=== PATIENT | female | born 1980 | race Caucasian/White ===

== ENCOUNTER 2017-05-25 08:42 | Emergency (ER) | payer BC ==
[2017-05-25 09:03] VITALS: BP 139/59
[2017-05-25] MEDS ORDERED: Ketorolac 60 MG/2 ML SDV IM ONE (09:15)
--- NOTE | 2017-05-25 09:25 | EDM.PDOC ---
ED HPI GENERAL MEDICAL PROBLEM - General Chief Complaint: Back Pain or Injury Stated Complaint: FELL ON ICE YESTERDAY Time Seen by Provider: 05/25/17 09:05 Source of Information: Reports: Patient History Limitations: Reports: No Limitations - History of Present Illness INITIAL COMMENTS - FREE TEXT/NARRATIVE: 36-year-old female was getting out of her car yesterday morning and slipped landing hard on her back on the left side. She is able to ambulate but has sharp pain in her lower back, left posterior shoulder and left lateral arm. She is able to move everything and she sat in a hot bath yesterday and has been taking ibuprofen however this morning it's worse. She is having trouble walking. She did not land directly on her backside but more flat on her back. No urinary changes, paresthesias or asymmetric weakness. She said she had trouble sleeping last night as well. 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 Lower Back Pain Score (Numeric/FACES): 8 - Related Data Allergies Allergy/AdvReac Type Severity Reaction Status Date / Time morphine AdvReac Headache Verified 05/25/17 08:52 prednisone AdvReac Tachycardia Verified 05/25/17 08:52 Home Meds: Home Meds Escitalopram [Lexapro] 20 mg PO DAILY 04/01/15 [History] Ibuprofen [Ibuprofen Ib] 400 mg PO Q4H PRN 04/01/15 [History] Zolpidem [Ambien] 10 mg PO BEDTIME PRN 04/01/15 [History] Past Medical History HEENT History: Reports: Impaired Vision 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: , 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 Musculoskeletal History: Reports: Osteoarthritis Neurological History: Reports: Migraines Psychiatric History: Reports: Anxiety, Depression Endocrine/Metabolic History: Reports: Obesity/BMI 30+ Other Dermatologic History: shingles - Infectious Disease History Infectious Disease History: Reports: Chicken Pox, Shingles - Past Surgical History GI Surgical History: Reports: Appendectomy, Cholecystectomy Female Surgical History: Reports: Hysterectomy Musculoskeletal Surgical History: Reports: Arthroscopic Knee Social & Family History - Tobacco Use Smoking Status *Q: Current Every Day Smoker Years of Tobacco use: 22 Packs/Tins Daily: 0.5 Used Tobacco, but Quit: No Second Hand Smoke Exposure: Yes - Caffeine Use Caffeine Use: Reports: Coffee, Energy Drinks, Soda, Tea - Alcohol Use Days Per Week of Alcohol Use: 0 - Recreational Drug Use Recreational Drug Use: No ED ROS GENERAL - Review of Systems Review Of Systems: See Below Constitutional: Denies: Fever, Chills Respiratory: Denies: Shortness of Breath Cardiovascular: Denies: Chest Pain GI/Abdominal: Denies: Abdominal Pain, Nausea, Vomiting : Reports: No Symptoms Skin: Reports: Bruising (Little bit of bruising developing in the left posterior upper back) ED EXAM,LOWER BACK PAIN/INJURY - Physical Exam Exam: See Below Exam Limited By: No Limitations General Appearance: Alert, No Apparent Distress (Patient looks uncomfortable but not acutely distressed) Neck: Other (Some mild soreness with rotation but generally supple, no bony tenderness) Respiratory/Chest: No Respiratory Distress Back Exam: Other (Very tender to palpation over the lumbar spine especially on the left. Increased pain with rotation against resistance and sharp increased pain with leg extension bilaterally. The pain is localized to the lower back however and does not extend down the leg) Course - Vital Signs Last Recorded V/S: Last Vital Signs Temp 97.4 F 05/25/17 09:01 Pulse 80 05/25/17 09:01 Resp 20 05/25/17 09:01 BP 139/59 L 05/25/17 09:01 Pulse Ox 99 05/25/17 09:01 - Orders/Labs/Meds Meds: Medications Discontinued Medications Generic Name Dose Route Start Last Admin Trade Name Riana PRN Reason Stop Dose Admin Ketorolac Tromethamine 60 mg 05/25/17 09:15 05/25/17 09:31 Toradol IM 05/25/17 09:16 60 mg ONETIME ONE Administration - Re-Assessments/Exams Free Text/Narrative Re-Assessment/Exam: 05/25/17 09:21 Explained to the patient that this is fairly typical post traumatic inflammatory reaction which was likely worsened by the heat that she applied after the injury. She was given an injection of Toradol 60 mg IM, will be discharged with Flexeril and a few Vicodin to use for extra pain control over the next several days. Also a note for work for 2 days but I encouraged her to try to stay active. She'll recheck in 3-4 days if not improving satisfactorily. Departure - Departure Time of Disposition: 09:47 Disposition: Home, Self-Care 01 Condition: Good Clinical Impression: Acute low back pain due to trauma, Contusion, shoulder /upper arm - Discharge Information Instructions: Back Pain, Adult, [id number] Referrals: Cristina Acosta NP [Primary Care Provider] - Forms: ED Department Discharge Care Plan Goals: Continue with ibuprofen 2-3 times daily, and muscle relaxers 3 times a day and stronger pain medications when trying to rest as directed. All 3 medications can be taken safely together if not driving. Ice may help the next 24-48 hours, then heat is okay. Try to increase activity as soon as possible and recheck in 3 -4 days if not improving satisfactorily. Return sooner if worsening such as incontinence, unexplained asymmetric weakness or numbness.
== END 2017-05-25 09:47 | disposition home or self-care (01) ==
LOC: JP.ED 08:42
DX: S40.012A Contusion of left shoulder, initial encounter (principal); G89.11 Acute pain due to trauma; F32.9 Major depressive disorder, single episode, unspecified; F17.210 Nicotine dependence, cigarettes, uncomplicated; Z79.899 Other long term (current) drug therapy; Z88.5 Allergy status to narcotic agent; Z88.8 Allergy status to other drugs, medicaments and biological substances; W00.0XXA Fall on same level due to ice and snow, initial encounter; M54.5 Low back pain
CPT/HCPCS: 96372; 99283; J1885

== ENCOUNTER 2019-01-26 11:45 | Emergency (ER) | payer BC ==
[2019-01-26 12:00] VITALS: BP 132/81; PULSE 85
[2019-01-26] MEDS ORDERED: Ketorolac 60 MG/2 ML SDV IM ONE (12:02)
[2019-01-26] MEDS ORDERED: Aspirin 81 MG Tab.Chew PO ONE (12:02)
--- NOTE | 2019-01-26 12:09 | EDM.PDOC ---
ED HPI GENERAL MEDICAL PROBLEM - General Chief Complaint: Chest Pain Stated Complaint: CHEST PAIN Time Seen by Provider: 01/26/19 12:00 Source of Information: Reports: Patient, RN Notes Reviewed History Limitations: Reports: No Limitations - History of Present Illness INITIAL COMMENTS - FREE TEXT/NARRATIVE: 38-year-old female presents emergency department today complaint chest pain, she states it started about 30 minutes prior she is cold and clammy short of breath she is nauseated does have pain shooting up into her neck and shoulder feels like she is going to . 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: , 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 Musculoskeletal History: Reports: Osteoarthritis Neurological History: Reports: Migraines Psychiatric History: Reports: Anxiety, Depression Endocrine/Metabolic History: Reports: Obesity/BMI 30+ Other Dermatologic History: shingles - Infectious Disease History Infectious Disease History: Reports: Chicken Pox, Shingles - Past Surgical History GI Surgical History: Reports: Appendectomy, Cholecystectomy Female Surgical History: Reports: Hysterectomy Musculoskeletal Surgical History: Reports: Arthroscopic Knee Social & Family History - Tobacco Use Smoking Status *Q: Heavy Tobacco Smoker Years of Tobacco use: 26 Packs/Tins Daily: 0.5 - Caffeine Use Caffeine Use: Reports: Coffee - Recreational Drug Use Recreational Drug Use: No ED ROS GENERAL - Review of Systems Review Of Systems: See Below Constitutional: Reports: Diaphoresis HEENT: Reports: No Symptoms Respiratory: Reports: Shortness of Breath Cardiovascular: Reports: Chest Pain, Dyspnea on Exertion GI/Abdominal: Reports: No Symptoms ED EXAM, GENERAL - Physical Exam Exam: See Below General Appearance: Alert, Mild Distress Respiratory/Chest: No Respiratory Distress, Lungs Clear, Normal Breath Sounds, No Accessory Muscle Use, Chest Non-Tender Cardiovascular: Regular Rate, Rhythm, No Murmur GI/Abdominal: Soft, Non-Tender Course - Vital Signs Last Recorded V/S: Last Vital Signs Temp 97.0 F 01/26/19 12:07 Pulse 85 01/26/19 12:07 Resp 15 01/26/19 12:07 BP 132/81 01/26/19 12:07 Pulse Ox 100 01/26/19 12:07 - Orders/Labs/Meds Orders: Active Orders 24 hr Category Date Time Status Cardiac Monitoring [RC] .As Directed Care 01/26/19 12:02 Active EKG Documentation Completion [RC] ASDIRECTED Care 01/26/19 12:02 Active EKG 12 Lead [EK] Stat Ther 01/26/19 12:02 Ordered Labs: Laboratory Tests 01/26/19 01/26/19 01/26/19 Range/Units 12:02 12:20 14:59 WBC 8.9 (4.5-11.0) K/uL RBC 5.01 (3.30-5.50) M/uL Hgb 15.4 H D (12.0-15.0) g/dL Hct 45.9 (36.0-48.0) % MCV 92 (80-98) fL MCH 31 (27-31) pg MCHC 34 (32-36) % Plt Count 280 (150-400) K/uL Neut % (Auto) 54 (36-66) % Lymph % (Auto) 33 (24-44) % Walsh % (Auto) 9 H (2-6) % Eos % (Auto) 4 (2-4) % Baso % (Auto) 1 (0-1) % Sodium 139 L (140-148) mmol/L Potassium 4.2 (3.6-5.2) mmol/L Chloride 103 (100-108) mmol/L Carbon Dioxide 26 (21-32) mmol/L Anion Gap 14.2 H (5.0-14.0) mmol/L BUN 10 (7-18) mg/dL Creatinine 0.7 (0.6-1.0) mg/dL Est Cr Clr Drug Dosing 85.34 mL/min Estimated GFR (MDRD) > 60 (>60) Glucose 95 (74-106) mg/dL Calcium 8.8 (8.5-10.1) mg/dL Total Bilirubin 0.3 (0.2-1.0) mg/dL AST 30 D (15-37) U/L ALT 38 D (12-78) U/L Alkaline Phosphatase 81 (46-116) U/L CK-MB (CK-2) 0.8 (0-3.6) mg/mL Troponin I < 0.017 < 0.017 (0.000-0.056) ng/mL Total Protein 6.7 (6.4-8.2) g/dL Albumin 3.2 L (3.4-5.0) g/dL Globulin 3.5 (2.3-3.5) g/dL Albumin/Globulin Ratio 0.9 L (1.2-2.2) Meds: Medications Discontinued Medications Generic Name Dose Route Start Last Admin Trade Name Freq PRN Reason Stop Dose Admin Aspirin 324 mg 01/26/19 12:02 01/26/19 12:11 Aspirin PO 01/26/19 12:03 324 mg ONETIME ONE Administration Ceftriaxone Sodium 1 gm/ 0 gm 01/26/19 15:02 Lidocaine HCl 2.1 ml IM 01/26/19 15:03 ONETIME ONE Fentanyl 50 mcg 01/26/19 13:36 01/26/19 13:42 Sublimaze IVPUSH 01/26/19 13:37 50 mcg ONETIME ONE Administration Ketorolac Tromethamine 60 mg 01/26/19 12:02 01/26/19 12:11 Toradol IM 01/26/19 12:03 60 mg ONETIME ONE Administration Departure - Departure Time of Disposition: 15:55 Disposition: Home, Self-Care 01 Condition: Fair Clinical Impression: Panic attack Referrals: Kelsea Ugarte RN [Primary Care Provider] - Forms: ED Department Discharge Additional Instructions: Only when these symptoms arise follow-up with primary care in 3-5 days if improvement call or return to the emergency department worsening of symptoms - My Orders Last 24 Hours: My Active Orders 01/26/19 12:02 Cardiac Monitoring [RC] .As Directed EKG Documentation Completion [RC] ASDIRECTED EKG 12 Lead [EK] Stat - Assessment/Plan Last 24 Hours: My Active Orders 01/26/19 12:02 Cardiac Monitoring [RC] .As Directed EKG Documentation Completion [RC] ASDIRECTED EKG 12 Lead [EK] Stat Plan: Assessment Acuity = acute Site and laterality = panic attack Etiology = generalized anxiety disorder Manifestations = chest pain now resolved Location of injury = Home Lab values = CBC, CMP, EKG, chest x-ray all within normal limits Plan We'll try Ativan 1 mg by mouth 3 times a day when necessary only when she is having attacks recommend follow-up primary care in 3-5 days This note was dictated using [email or web address] voice recognition software please call with any questions on syntax or grammar.
--- NOTE | 2019-01-26 12:59 | CRLCR ---
INDICATION: CHEST PAIN SENT PRIORS TECHNIQUE: Chest 2 views. COMPARISON: 05/07/09 FINDINGS: Cardiovascular and mediastinum: Heart size and vasculature are normal in caliber and appearance. Mediastinum is within normal limits. Lungs and pleural spaces: Lungs are clear. No sign of infiltrate or mass. No sign of pleural effusion. No pneumothorax. Bones and soft tissues: No significant findings. IMPRESSION: Unremarkable chest. Dictated by: Santiago Rosa MD @ 01/26/2019 12:57:09 (Electronically Signed)
[2019-01-26] MEDS ORDERED: fentaNYL 100 MCG/2 ML SDV IVPUSH ONE (13:36)
[2019-01-26] MEDS ORDERED: cefTRIAXone 1 GM, Lidocaine 1% 2.1 ML IM ONE ×2 (15:02)
== END 2019-01-26 16:03 | disposition home or self-care (01) ==
LOC: JP.ED 11:45
DX: F41.0 Panic disorder [episodic paroxysmal anxiety] (principal); F32.9 Major depressive disorder, single episode, unspecified; E66.9 Obesity, unspecified; F17.210 Nicotine dependence, cigarettes, uncomplicated; Z68.41 Body mass index [BMI] 40.0-44.9, adult; Z88.6 Allergy status to analgesic agent; Z88.8 Allergy status to other drugs, medicaments and biological substances; Z79.899 Other long term (current) drug therapy
CPT/HCPCS: 36415; 71046; 80053; 82553; 84484; 85025; 93005; 96372; 96374; 99284; A9270; J1885; J3010

== ENCOUNTER 2021-02-27 10:54 | Emergency (ER) | payer SELFPAY ==
[2021-02-27 11:04] VITALS: BP 106/84; PULSE 99
[2021-02-27] MEDS: Ondansetron 4 MG Tab.DIS PO ONE (11:24)
[2021-02-27] MEDS: SUMAtriptan 6 MG/0.5 ML SDV SUBCUT ONE (12:06)
--- NOTE | 2021-02-27 13:09 | CR ---
CHEST: 2 view CLINICAL HISTORY:Dyspnea COMPARISON:2019 FINDINGS: The heart size, pulmonary vascularity and hilar structures are normal. No infiltrate effusion or pneumothorax is seen. IMPRESSION: No acute cardiopulmonary process.
--- NOTE | 2021-02-27 13:10 | EDM.PDOC ---
ED HPI GENERAL MEDICAL PROBLEM - General Chief Complaint: General Stated Complaint: HEADACHE FEELING DIFFERENT Time Seen by Provider: 02/27/21 11:15 Source of Information: Reports: Patient History Limitations: Reports: No Limitations - History of Present Illness INITIAL COMMENTS - FREE TEXT/NARRATIVE: 40-year-old female with chronic migraines, is struggling with the migraine he adache for the past 24 hours that is worse than usual. She took 3 doses of her antimigraine medicine yesterday, today now she has some left-sided anterior chest pressure that is worse with breathing, persistent nausea and just generalized malaise. She is afraid something more serious is wrong. Headache is now fairly under control but the nausea is very persistent. She continues to have intermittent aura. Onset: Other Associated Symptoms: Reports: Chest Pain, Malaise, Nausea/Vomiting. 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 Musculoskeletal History: Reports: Osteoarthritis Neurological History: Reports: Migraines Psychiatric History: Reports: Anxiety, Depression Endocrine/Metabolic History: Reports: Obesity/BMI 30+ Other Dermatologic History: shingles - Infectious Disease History Infectious Disease History: Reports: Chicken Pox, Shingles - Past Surgical History GI Surgical History: Reports: Appendectomy, Cholecystectomy Female Surgical History: Reports: Hysterectomy Musculoskeletal Surgical History: Reports: Arthroscopic Knee Social & Family History - Tobacco Use Tobacco Use Status *Q: Current Every Day Tobacco User Years of Tobacco use: 22 Packs/Tins Daily: 0.5 - Caffeine Use Caffeine Use: Reports: Coffee, Soda - Recreational Drug Use Recreational Drug Use: No ED ROS GENERAL - Review of Systems Review Of Systems: See Below Constitutional: Reports: Malaise. Denies: Fever, Chills HEENT: Reports: Vision Change (Some aura) Respiratory: Reports: Pleuritic Chest Pain (Left anterior pain). Denies: Shortness of Breath Cardiovascular: Reports: Chest Pain GI/Abdominal: Reports: Nausea. Denies: Abdominal Pain, Vomiting : Reports: No Symptoms Musculoskeletal: Reports: Other (Left anterior chest discomfort) Skin: Reports: No Symptoms. Denies: Rash Neurological: Reports: Headache Psychiatric: Reports: No Symptoms ED EXAM, GENERAL - Physical Exam Exam: See Below Exam Limited By: No Limitations General Appearance: Alert, No Apparent Distress Eye Exam: Bilateral Eye: Normal Inspection Head: Atraumatic Neck: Non-Tender Respiratory/Chest: Lungs Clear, Other (There is a sore area to palpation on the anterior left chest wall) Cardiovascular: Regular Rate, Rhythm GI/Abdominal: Soft, Non-Tender, No Mass Extremities: Normal Inspection Neurological: Alert, Oriented, No Motor/Sensory Deficits Psychiatric: Flat Affect Skin Exam: Warm, Dry Course - Vital Signs Last Recorded V/S: Last Vital Signs Temp 97.8 F 02/27/21 11:02 Pulse 99 02/27/21 11:02 Resp 16 02/27/21 11:02 BP 106/84 02/27/21 11:02 Pulse Ox 97 02/27/21 11:02 - Orders/Labs/Meds Orders: Active Orders 24 hr Category Date Time Status EKG 12 Lead [EK] Routine Ther 02/27/21 11:18 Ordered Labs: Laboratory Tests 02/27/21 02/27/21 02/27/21 Range/Units 11:30 11:30 11:30 WBC 11.0 (4.5-11.0) K/uL RBC 5.00 (3.30-5.50) M/uL Hgb 15.3 H (12.0-15.0) g/dL Hct 45.2 (36.0-48.0) % MCV 90 (80-98) fL MCH 31 (27-31) pg MCHC 34 (32-36) % Plt Count 317 (150-400) K/uL Neut % (Auto) 61.2 (36-66) % Lymph % (Auto) 25.7 (24-44) % [place] % (Auto) 9.7 H (2-6) % Eos % (Auto) 2.9 (2-4) % Baso % (Auto) 0.5 (0-1) % D-Dimer, Quantitative 387.62 (0.0-500.0) ng/mL Sodium 139 L (140-148) mmol/L Potassium 4.2 (3.6-5.2) mmol/L Chloride 102 (100-108) mmol/L Carbon Dioxide 23 (21-32) mmol/L Anion Gap 18.2 H (5.0-14.0) mmol/L BUN 9 (7-18) mg/dL Creatinine 0.7 (0.6-1.0) mg/dL Est Cr Clr Drug Dosing TNP Estimated GFR (MDRD) > 60 (>60) Glucose 97 (74-106) mg/dL Calcium 8.8 (8.5-10.1) mg/dL Total Bilirubin 0.2 (0.2-1.0) mg/dL AST 20 (15-37) U/L ALT 30 (12-78) U/L Alkaline Phosphatase 80 (46-116) U/L Troponin I < 0.017 (0.000-0.056) ng/mL Total Protein 6.6 (6.4-8.2) g/dL Albumin 3.2 L (3.4-5.0) g/dL Globulin 3.4 (2.3-3.5) g/dL Albumin/Globulin Ratio 0.9 L (1.2-2.2) Meds: Medications Discontinued Medications Generic Name Dose Route Start Last Admin Trade Name Freq PRN Reason Stop Dose Admin Ketorolac Tromethamine 30 mg 02/27/21 12:55 02/27/21 13:14 Ketorolac 30 Mg/Ml Sdv IVPUSH 02/27/21 12:56 30 mg ONETIME ONE Administration Methylprednisolone Sodium Succinate 125 mg 02/27/21 12:55 02/27/21 13:18 Methylprednisolone Sodium Succinate 125 Mg/2 Ml Sdv IVPUSH 02/27/21 12:56 125 mg ONETIME ONE Administration Ondansetron HCl 4 mg 02/27/21 11:18 02/27/21 11:24 Ondansetron 4 Mg Tab.Dis PO 02/27/21 11:19 4 mg ONETIME ONE Administration Sumatriptan Succinate 6 mg 02/27/21 11:56 02/27/21 12:06 Sumatriptan 6 Mg/0.5 Ml Sdv SUBCUT 02/27/21 11:57 6 mg ONETIME ONE Administration - Re-Assessments/Exams Free Text/Narrative Re-Assessment/Exam: 02/27/21 13:09 Initially blood was drawn for CBC CMP TSH and troponin, 2 view chest x-ray was obtained as well. X-ray was normal, all her labs were reassuring. Unfortunately her headache worsened while she was here, so she was given 6 mg of IM Imitrex which did not give her a lot of relief. An IV was then started she was given 30 mg of IV Toradol and 125 mg of IV Solu-Medrol. 02/27/21 18:34 All labs returned very reassuring, D-dimer, troponin were normal, patient was reassured. She responded pretty well to the IV Toradol. Departure - Departure Time of Disposition: 13:37 Disposition: Home, Self-Care 01 Clinical Impression: Atypical chest pain Migraine headache with aura Qualifiers: Status migrainosus presence: without status migrainosus Intractability: not intractable Qualified Code(s): G43.109 - Migraine with aura, not intractable, without status migrainosus - Discharge Information Instructions: Nonspecific Chest Pain, Adult, [id number] Referrals: PCP,None [Primary Care Provider] - Forms: ED Department Discharge Care Plan Goals: Resume your regular medications, stay hydrated, and increase activity as tolerated. Rest today and return in the next couple of days if not improving satisfactorily. Sepsis Event Note (ED) - Evaluation Sepsis Screening Result: No Definite Risk - Focused Exam Vital Signs: Vital Signs Temp Pulse Resp BP Pulse Ox 02/27/21 11:02 97.8 F 99 16 106/84 97 - My Orders Last 24 Hours: My Active Orders 02/27/21 11:18 EKG 12 Lead [EK] Routine - Assessment/Plan Last 24 Hours: My Active Orders 02/27/21 11:18 EKG 12 Lead [EK] Routine
[2021-02-27] MEDS: Ketorolac 30 MG/ML SDV IVPUSH ONE (13:14)
[2021-02-27] MEDS: methylPREDNISolone Sodium Succinate 125 MG/2 ML SDV IVPUSH ONE (13:18)
== END 2021-02-27 13:40 | disposition home or self-care (01) ==
LOC: JP.ED 10:54
DX: G43.109 Migraine with aura, not intractable, without status migrainosus (principal); R07.89 Other chest pain; E66.9 Obesity, unspecified; Z88.5 Allergy status to narcotic agent; Z88.8 Allergy status to other drugs, medicaments and biological substances; Z72.0 Tobacco use
CPT/HCPCS: 36415; 71046; 80053; 84484; 85025; 85379; 93005; 96372; 96374; 96375; 99285; A9270; J1885; J2930; J3030

== ENCOUNTER 2022-10-10 08:43 | Emergency (ER) | payer SELFPAY ==
[2022-10-10 10:14] LABS: ESTIMATED GFR 94 mL/min (>60); TROPONIN I HIGH SENSITIVITY 5.7 pg/mL (<=60.3)
[2022-10-10 10:29] VITALS: BP 122/74; PULSE 74
== END 2022-10-10 13:30 | disposition home or self-care (01) ==
LOC: JP.ED 08:43
DX: R07.89 Other chest pain (principal); E75.5 Other lipid storage disorders; E66.01 Morbid (severe) obesity due to excess calories; Z88.5 Allergy status to narcotic agent; Z88.8 Allergy status to other drugs, medicaments and biological substances; Z72.0 Tobacco use; Z68.43 Body mass index [BMI] 50.0-59.9, adult
CPT/HCPCS: 36415; 71045; 71045-26; 80048; 84484; 85025; 85610; 85730; 93005; 99285

== ENCOUNTER 2022-12-21 14:04 | Emergency (ER) | payer SELFPAY ==
[2022-12-21 14:22] VITALS: BP 130/73; PULSE 92
[2022-12-21] MEDS ORDERED: Ketorolac 30 MG/ML SDV IM ONE (14:46)
[2022-12-21 14:54] LABS: HEMATOCRIT 42.7 % (34.3-46.0); HEMOGLOBIN 14.6 g/dL (11.2-15.5); MEAN CORPUSCULAR HGB CONC 34.2 g/dL (31.6-35.5); MEAN CORPUSCULAR VOLUME 90.7 fL (81.4-99.0); RED BLOOD CELL COUNT 4.71 M/uL (3.77-5.24); WHITE BLOOD CELL COUNT,WBC 10.8 K/uL (3.2-11.0)
[2022-12-21 15:16] LABS: A/G RATIO 0.9 (1.2-2.2); ALANINE AMINOTRANSFERASE,ALT 22 U/L (12-78); ALKALINE PHOSPHATASE 82 U/L (46-116); ANION GAP 8.5 mmol/L (5.0-14.0); ASPARTATE AMNIOTRANSFERASE,AST 17 U/L (15-37); BILIRUBIN TOTAL 0.3 mg/dL (0.2-1.0); BLOOD UREA NITROGEN,BUN 9 mg/dL (7-18); CALCIUM 8.6 mg/dL (8.5-10.1); CARBON DIOXIDE,CO2 26 mmol/L (21-32); CHLORIDE,CL 106 mmol/L (100-108); CREATININE 0.7 mg/dL (0.6-1.0); EST CRCL DRUG DOSING (CG) 81.96 mL/min; ESTIMATED GFR 110 mL/min (>60); GLUCOSE RANDOM 131 mg/dL (74-106); POTASSIUM,K 3.8 mmol/L (3.6-5.2); PROTEIN TOTAL,TP 6.4 g/dL (6.4-8.2); SODIUM,NA 140 mmol/L (140-148)
[2022-12-21 15:17] LABS: PROTHROMBIN TIME 9.9 sec (9.2-10.6)
[2022-12-21 15:43] LABS: APPEARANCE,URINE CLEAR (CLEAR); BILIRUBIN,URINE NEGATIVE (NEGATIVE); COLOR,URINE YELLOW (YELLOW); GLUCOSE,URINE NEGATIVE (NEGATIVE); KETONES,URINE NEGATIVE (NEGATIVE); LEUKOCYTE ESTERASE,URINE NEGATIVE (NEGATIVE); NITRITE,URINE NEGATIVE (NEGATIVE); OCCULT BLOOD,URINE NEGATIVE (NEGATIVE); PH,URINE 5.5 (5.0-8.0); PROTEIN,URINE NEGATIVE (NEGATIVE); UROBILINOGEN,URINE 0.2 EU/dL (0.2-1.0)
[2022-12-21 15:51] LABS: AMORPHOUS SEDIMENT,URINE NOT SEEN; BACTERIA,URINE RARE; EPITHELIAL CELLS,URINE FEW; MUCUS,URINE RARE; RBC,URINE 0-5 (0-5); WBC,URINE 0-5 (0-5)
== END 2022-12-21 16:10 | disposition home or self-care (01) ==
LOC: JP.ED 14:04
DX: R09.1 Pleurisy (principal); M19.90 Unspecified osteoarthritis, unspecified site; E66.9 Obesity, unspecified; F17.210 Nicotine dependence, cigarettes, uncomplicated; Z68.42 Body mass index [BMI] 45.0-49.9, adult; Z88.5 Allergy status to narcotic agent; Z88.8 Allergy status to other drugs, medicaments and biological substances; Z79.82 Long term (current) use of aspirin
CPT/HCPCS: 36415; 71046; 80053; 81001; 81025; 83605; 84484; 85027; 85379; 85610; 93005; 96372; 99285; J1885

== ENCOUNTER 2024-07-01 07:57 | Emergency (ER) | payer SELFPAY ==
[2024-07-01 08:14] VITALS: BP 138/79; PULSE 117
[2024-07-01 08:51] LABS: APPEARANCE,URINE CLEAR (CLEAR); BILIRUBIN,URINE NEGATIVE (NEGATIVE); COLOR,URINE YELLOW (YELLOW); GLUCOSE,URINE NEGATIVE (NEGATIVE); KETONES,URINE NEGATIVE (NEGATIVE); LEUKOCYTE ESTERASE,URINE NEGATIVE (NEGATIVE); NITRITE,URINE NEGATIVE (NEGATIVE); OCCULT BLOOD,URINE NEGATIVE (NEGATIVE); PROTEIN,URINE NEGATIVE (NEGATIVE); UROBILINOGEN,URINE 0.2 EU/dL (0.2-1.0)
[2024-07-01 08:54] LABS: BASOPHILS ABSOLUTE AUTO 0.06 K/uL (0.00-0.10); BASOPHILS PERCENT AUTO 0.6 % (0.1-1.3); EOSINOPHILS ABSOLUTE AUTO 0.44 K/uL (0.00-0.40); EOSINOPHILS PERCENT AUTO 4.1 % (0.0-5.4); HEMATOCRIT 44.4 % (34.3-46.0); HEMOGLOBIN 15.3 g/dL (11.2-15.5); IMMATURE GRAN ABSOLUTE AUTO 0.04 K/uL (0.00-0.23); IMMATURE GRAN PERCENT AUTO 0.4 % (0.0-0.7); LYMPHOCYTES ABSOLUTE AUTO 2.51 K/uL (0.8-3.3); LYMPHOCYTES PERCENT AUTO 23.3 % (11.4-47.7); MEAN CORPUSCULAR HEMOGLOBIN 31.4 pg (31.6-35.5); MEAN CORPUSCULAR HGB CONC 34.5 g/dL (31.6-35.5); MONOCYTES ABSOLUTE AUTO 0.89 K/uL (0.20-0.90); MONOCYTES PERCENT AUTO 8.3 % (3.3-12.6); NEUTROPHILS ABSOLUTE AUTO 6.83 K/uL (1.0-7.6); NEUTROPHILS PERCENT AUTO 63.3 % (40.0-78.1); PLATELET COUNT,PLT 289 K/uL (130-375); RED BLOOD CELL COUNT 4.88 M/uL (3.77-5.24); WHITE BLOOD CELL COUNT,WBC 10.8 K/uL (3.2-11.0)
[2024-07-01 08:58] LABS: AMORPHOUS SEDIMENT,URINE NOT SEEN; BACTERIA,URINE RARE; EPITHELIAL CELLS,URINE RARE; MUCUS,URINE NOT SEEN; RBC,URINE 0-5 (0-5); WBC,URINE 0-5 (0-5)
[2024-07-01] MEDS: Ondansetron 4 MG/2 ML SDV IVPUSH ONE (09:15)
[2024-07-01] MEDS: fentaNYL 100 MCG/2 ML SDV IVPUSH ONE (09:15)
[2024-07-01 09:18] LABS: A/G RATIO 0.9 (1.2-2.2); ALANINE AMINOTRANSFERASE,ALT 35 U/L (12-78); ALBUMIN 3.4 g/dL (3.4-5.0); ALKALINE PHOSPHATASE 83 U/L (46-116); ANION GAP 11.2 mmol/L (5.0-14.0); ASPARTATE AMNIOTRANSFERASE,AST 21 U/L (15-37); BILIRUBIN TOTAL 0.3 mg/dL (0.2-1.0); BLOOD UREA NITROGEN,BUN 10 mg/dL (7-18); CALCIUM 8.9 mg/dL (8.5-10.1); CARBON DIOXIDE,CO2 29 mmol/L (21-32); CHLORIDE,CL 103 mmol/L (100-108); CREATININE 0.8 mg/dL (0.6-1.0); EST CRCL DRUG DOSING (CG) 70.24 mL/min; ESTIMATED GFR 93 mL/min (>60); GLUCOSE RANDOM 112 mg/dL (74-106); POTASSIUM,K 4.2 mmol/L (3.6-5.2); SODIUM,NA 139 mmol/L (140-148)
[2024-07-01] MEDS: Sodium Chloride 0.9% 60 ML IV SCH (09:28)
[2024-07-01] MEDS: Iopamidol 612 MG/ML 100 ML Bottle IV SCH (09:28)
[2024-07-01] MEDS: Sodium Chloride 0.9% 10 ML Syringe FLUSH PRN (09:38)
== END 2024-07-01 11:28 | disposition home or self-care (01) ==
LOC: JP.ED 07:57
DX: R10.12 Left upper quadrant pain (principal); K21.9 Gastro-esophageal reflux disease without esophagitis; M19.90 Unspecified osteoarthritis, unspecified site; E66.9 Obesity, unspecified; F17.210 Nicotine dependence, cigarettes, uncomplicated; Z90.49 Acquired absence of other specified parts of digestive tract; Z90.710 Acquired absence of both cervix and uterus; Z88.5 Allergy status to narcotic agent; Z88.8 Allergy status to other drugs, medicaments and biological substances; Z79.82 Long term (current) use of aspirin; Z79.899 Other long term (current) drug therapy; Z68.43 Body mass index [BMI] 50.0-59.9, adult
CPT/HCPCS: 36415; 74177; 80053; 81001; 83605; 83690; 84484; 85025; 96374; 96375; 99284; J2405; J3010; J3490; Q9967